=== PATIENT | male | born 1975 | race Caucasian/White ===

== ENCOUNTER → 2018-09-15 | Outpatient (CLI) | payer OTHER | LOC: FIMAGING 15:03 | PROVIDERS: ATTEND Family Medicine | DX: M53.3 Sacrococcygeal disorders, not elsewhere classified (principal); M99.03 Segmental and somatic dysfunction of lumbar region; M51.37 Other intervertebral disc degeneration, lumbosacral region ==

== ENCOUNTER → 2018-10-01 | Day surgery (SDC) | payer OTHER ==
[~2018-10-01] MED LIST: BUPIVACAINE 0.25% 30 ML SDV ONE; DEPO METHYLPREDNISOLONE 40 MG/ML SDV ONE; DEPO METHYLPREDNISOLONE 80 MG/ML SDV ONE; LIDOCAINE 1% 300 MG/30 ML SDV ONE
== END | disposition home or self-care (01) ==
LOC: FIMAGING 11:13
PROVIDERS: ATTEND Radiology Diagnostic Radiology
DX: M53.3 Sacrococcygeal disorders, not elsewhere classified (principal)
CPT/HCPCS: J1030; J1040

== ENCOUNTER → 2019-01-27 | Outpatient (CLI) | payer OTHER | LOC: FIMAGING 10:19 | PROVIDERS: ATTEND Family Medicine Sports Medicine | DX: M24.871 Other specific joint derangements of right ankle, not elsewhere classified (principal) ==